=== PATIENT | male | born 1955 | race Caucasian/White ===

== ENCOUNTER 2023-04-18 03:09 | Inpatient (IN) | payer BC ==
[2023-04-18] VITALS (55 sets, daily range): BP systolic 86–118; BP diastolic 26–100; PULSE 77–159; RESP 0–38; TEMP 98.2–98.6
[~2023-04-18] VITALS: Ht 182.9 cm; Wt 91.6 kg
[2023-04-18] MEDS ORDERED: SODIUM CHLORIDE 0.9% 500 ML IV ONE (03:30)
[2023-04-18 03:41] LABS: BASOPHILS % 0.3 % (0.0-2.0); EOSINOPHILS % 0.1 % (0.0-5.0); HEMATOCRIT. 46.5 % (42.0-52.0); HEMOGLOBIN. 15.5 g/dL (14.0-18.0); LYMPHOCYTES % 30.7 % (20.0-50.0); MEAN CORPUSCULAR HEMOGLOBIN 31.1 pg (28.0-32.0); MEAN CORPUSCULAR HGB CONC 33.2 g/dL (31.0-37.0); MEAN CORPUSCULAR VOLUME 93.7 fL (80.0-94.0); MEAN PLATELET VOLUME 9.4 fl (7.4-10.4); MONOCYTES % 5.1 % (2.0-8.0); NEUTROPHILS % 63.8 % (40.0-76.0); PLATELET 188 x1000/uL (130-400); RED BLOOD CELL COUNT 4.97 mill/uL (4.7-6.1); RED CELL DISTRIBUTION WIDTH 14.3 % (11.6-14.6); WHITE BLOOD COUNT 21.7 x1000/uL (4.5-11.0)
[2023-04-18] MEDS ORDERED: MIDAZOLAM HCL 100 MG in SODIUM CHLORIDE 0.9% 100 ML IV NR (03:45)
[2023-04-18] MEDS ORDERED: ETOMIDATE 2MG/ML 10ML VIAL IV ONE (03:45)
[2023-04-18] MEDS ORDERED: SUCCINYLCHOLINE CHLORIDE 200MG/10ML IV ONE (03:45)
[2023-04-18] MEDS ORDERED: MIDAZOLAM HCL 100 MG in DEXT 5% WATER 80 ML IV ONE (03:45)
[2023-04-18] MEDS ORDERED: ROCURONIUM BROMIDE 10MG/ML VIAL 5ML IV ONE (03:45)
[2023-04-18] MEDS ORDERED: PROPOFOL 10MG/ML 100ML 100 ML IV ONE (03:45)
[2023-04-18 03:53] LABS: CALCIUM 8.6 mg/dL (8.5-10.1); CHLORIDE 106 mEq/L (98-107); INDEX HEMOLYSI 4 (1-3); INDEX ICTERIC 1 (1-4); INDEX LIPEMIC 1 (1-3); POTASSIUM 3.7 mEq/L (3.5-5.1); SODIUM 140 mEq/L (136-145)
[2023-04-18 04:00] LABS: CARBON DIOXIDE 23 mEq/L (21-32); CREATININE 1.2 mg/dL (0.6-1.3); ETHANOL BLOOD < 10 mg/dL (<10); GLUCOSE 278 mg/dL (70-105); NT PRO B-TYPE NATRIURETIC PEP 2888 pg/mL (5-125); UREA NITROGEN BLOOD 16 mg/dL (7-21)
[2023-04-18 04:10] LABS: BG BASE EXCESS -15.9 mmol/L (-2.0-2.0); BG CARBOXYHEMOGLOBIN 0.5 % (0.5-1.5); BG DEOXYHEMOGLOBIN 25.3 % (0.0-5.0); BG FRACTION INSPIRED OXYGEN 100; BG HCO3 ACT 15.4 mmol/L (22.0-26.0); BG METHEMOGLOBIN 0.4 % (0.0-1.5); BG OXYGEN SATURATION 74.5 % (92.0-98.5); BG OXYHEMOGLOBIN 73.8 % (94.0-97.0); BG PCO2 58.3 mmHg (35.0-45.0); BG PH 7.039 (7.350-7.450); BG PO2 53.8 mmHg (75.0-100.0); BG SAMPLE SITE RIGHT RADIAL; BG TOTAL HEMOGLOBIN 15.8 g/dL (12.0-18.0); BG VENT MODE VENT - AC
[2023-04-18 04:34] LABS: LACTIC ACID 8.2 mmol/L (0.4-2.0); TROPONIN I HIGH SENSITIVITY 7863 ng/L (<78)
[2023-04-18] MEDS ORDERED: METOPROLOL TARTRATE 5MG/5ML VIAL IV SCH (04:45)
[2023-04-18 04:48] LABS: D-DIMER 31.34 mg/L FEU (<0.50); PARTIAL THROMBOPLASTIN TIME 28.2 sec (23.4-31.0)
[2023-04-18 05:28] LABS: CHLORIDE 106 mEq/L (98-107); INDEX HEMOLYSI 3 (1-3); INDEX ICTERIC 1 (1-4); INDEX LIPEMIC 1 (1-3); SODIUM 140 mEq/L (136-145)
[2023-04-18 05:37] LABS: ALANINE AMINOTRANSFERASE 428 IU/L (13-61); ASPARTATE AMINOTRANSFERASE 499 IU/L (15-37); BILIRUBIN TOTAL 1.1 mg/dL (0.1-1.0); CALCIUM 8.4 mg/dL (8.5-10.1); CARBON DIOXIDE 21 mEq/L (21-32); CREATININE 1.3 mg/dL (0.6-1.3); GLUCOSE 356 mg/dL (70-105); PROTEIN TOTAL 5.8 g/dL (6.0-8.3); UREA NITROGEN BLOOD 16 mg/dL (7-21)
[2023-04-18 05:44] LABS: TROPONIN I HIGH SENSITIVITY 9328 ng/L (<78)
[2023-04-18] MEDS ORDERED: ASPIRIN 300MG SUPP PR ONE (06:15)
[2023-04-18] MEDS ORDERED: HEPARIN 5000 UNITS/ML VIAL IV ONE (06:15)
[2023-04-18 06:44] LABS: TROPONIN I HIGH SENSITIVITY 11455 ng/L (<78)
[2023-04-18] MEDS ORDERED: LIDOCAINE HCL/PF 1% 10 MG/ML 5ML VIAL ONE (06:47)
[2023-04-18] MEDS ORDERED: HEPARIN 1000 UNITS/ML 10ML ONE (06:47)
[2023-04-18] MEDS ORDERED: VERAPAMIL HCL 2.5 MG/1 ML 2ML VIAL IV ONE (06:49)
[2023-04-18] MEDS ORDERED: FUROSEMIDE 20MG/2ML VIAL ONE ×2 (07:04→07:41)
[2023-04-18] MEDS ORDERED: TICAGRELOR 90 MG TABLET PO ONE (07:05)
[2023-04-18] MEDS ORDERED: IODIXANOL 320MG/ML 100 ML BOTTLE IV ONE ×2 (07:25→09:07)
[2023-04-18] MEDS ORDERED: SODIUM BICARBONATE 8.4% 1 MEQ/ML 50ML SYR IV ONE (08:52)
[2023-04-18 08:58] LABS: BG BASE EXCESS -13.3 mmol/L (-2.0-2.0); BG CARBOXYHEMOGLOBIN 0.6 % (0.5-1.5); BG DEOXYHEMOGLOBIN 14.6 % (0.0-5.0); BG FRACTION INSPIRED OXYGEN 100; BG HCO3 ACT 15.6 mmol/L (22.0-26.0); BG METHEMOGLOBIN 0.3 % (0.0-1.5); BG OXYGEN SATURATION 85.3 % (92.0-98.5); BG OXYHEMOGLOBIN 84.5 % (94.0-97.0); BG PCO2 46.6 mmHg (35.0-45.0); BG PH 7.142 (7.350-7.450); BG PO2 62.2 mmHg (75.0-100.0); BG SAMPLE SITE ALINE; BG TOTAL HEMOGLOBIN 15.7 g/dL (12.0-18.0); BG TOTAL RESPIRATORY RATE 20 b/min; BG VENT MODE VENT - AC
[2023-04-18] MEDS ORDERED: IODIXANOL 320 MG/ML 150ML BOTTLE IV ONE (09:06)
[2023-04-18] MEDS ORDERED: NOREPINEPHRINE 8MG/250ML PMX 250 ML IV ONE (09:11)
[2023-04-18] MEDS ORDERED: SODIUM BICARBONATE 8.4% 1 MEQ/ML 50ML SYR IV NR ×2 (09:15→15:45)
[2023-04-18] MEDS ORDERED: FUROSEMIDE 100MG/10ML VIAL ONE (09:45)
[2023-04-18] MEDS: TICAGRELOR 90 MG TABLET PO SCH ×2 (10:30→22:09)
[2023-04-18] MEDS ORDERED: HEPARIN 25,000 UNITS PREMIX 250 ML IV SCH (10:30)
[2023-04-18] MEDS ORDERED: ATROPINE SULFATE 1MG/10ML SYR IV PRN (10:30)
[2023-04-18] MEDS ORDERED: ACETAMINOPHEN 325MG TABLET PO PRN (10:30)
[2023-04-18] MEDS ORDERED: WATER IV SCH (11:00)
[2023-04-18] MEDS ORDERED: SODIUM BICARBONATE IV SCH (11:00)
[2023-04-18] MEDS ORDERED: DEXTROSE 5% IV SCH (11:00)
[2023-04-18] MEDS ORDERED: AMIODARONE 150MG/100ML PREMIX 100 ML IV NR (11:45)
[2023-04-18 12:21] LABS: BG BASE EXCESS -11.1 mmol/L (-2.0-2.0); BG CARBOXYHEMOGLOBIN 0.3 % (0.5-1.5); BG DEOXYHEMOGLOBIN 13.1 % (0.0-5.0); BG FRACTION INSPIRED OXYGEN 100; BG HCO3 ACT 15.8 mmol/L (22.0-26.0); BG METHEMOGLOBIN 0.3 % (0.0-1.5); BG OXYGEN SATURATION 86.8 % (92.0-98.5); BG OXYHEMOGLOBIN 86.3 % (94.0-97.0); BG PCO2 38.8 mmHg (35.0-45.0); BG PH 7.228 (7.350-7.450); BG PO2 59.1 mmHg (75.0-100.0); BG SAMPLE SITE ALINE; BG TOTAL HEMOGLOBIN 15.2 g/dL (12.0-18.0); BG TOTAL RESPIRATORY RATE 32 b/min; BG VENT MODE VENT - AC
[2023-04-18] MEDS: SODIUM BICARBONATE 100 MEQ in DEXTROSE 5% WATER 1,000 ML IV SCH ×2 (13:06→22:03)
[2023-04-18 13:07] LABS: BASOPHILS % 0.1 % (0.0-2.0); EOSINOPHILS % 0.1 % (0.0-5.0); HEMATOCRIT. 41.4 % (42.0-52.0); HEMOGLOBIN. 13.8 g/dL (14.0-18.0); MEAN CORPUSCULAR HEMOGLOBIN 31.1 pg (28.0-32.0); MEAN CORPUSCULAR HGB CONC 33.4 g/dL (31.0-37.0); MEAN CORPUSCULAR VOLUME 93.2 fL (80.0-94.0); MEAN PLATELET VOLUME 9.5 fl (7.4-10.4); MONOCYTES % 4.7 % (2.0-8.0); NEUTROPHILS % 87.1 % (40.0-76.0); PLATELET 185 x1000/uL (130-400); RED BLOOD CELL COUNT 4.44 mill/uL (4.7-6.1); RED CELL DISTRIBUTION WIDTH 14.2 % (11.6-14.6); WHITE BLOOD COUNT 16.5 x1000/uL (4.5-11.0)
[2023-04-18] MEDS: NOREPINEPHRINE 32 MG in DEXT 5% WATER 218 ML IV PRN ×2 (13:15→19:23)
[2023-04-18 13:21] LABS: CHLORIDE 107 mEq/L (98-107); INDEX HEMOLYSI 6 (1-3); INDEX ICTERIC 1 (1-4); INDEX LIPEMIC 1 (1-3); SODIUM 138 mEq/L (136-145)
[2023-04-18 13:25] LABS: POTASSIUM 4.7 mEq/L (3.5-5.1)
[2023-04-18] MEDS ORDERED: DOPAMINE 400MG/250ML PREMIX 250 ML IV PRN (13:30)
[2023-04-18] MEDS ORDERED: DORZ10DR9 EACHEYE (13:33)
[2023-04-18] MEDS ORDERED: BRIM5DRO6 EACHEYE (13:33)
[2023-04-18 13:40] LABS: ALANINE AMINOTRANSFERASE 408 IU/L (13-61); ALBUMIN 2.4 g/dL (3.4-5.0); ASPARTATE AMINOTRANSFERASE 1491 IU/L (15-37); BILIRUBIN TOTAL 1.5 mg/dL (0.1-1.0); CALCIUM 6.9 mg/dL (8.5-10.1); CARBON DIOXIDE 18 mEq/L (21-32); CREATININE 1.9 mg/dL (0.6-1.3); GLUCOSE 267 mg/dL (70-105); UREA NITROGEN BLOOD 22 mg/dL (7-21)
[2023-04-18] MEDS: ASPIRIN 81MG TABLET PO SCH (13:50)
[2023-04-18] MEDS: FUROSEMIDE 100MG/10ML VIAL IVP SCH ×2 (13:50→18:23)
[2023-04-18] MEDS ORDERED: MIDAZOLAM 100MG/100ML PMX 100 ML IV PRN (14:45)
[2023-04-18] MEDS ORDERED: VASOPRESSIN 20 UNIT in SODIUM CHLORIDE 0.9% 99 ML IV PRN (14:45)
[2023-04-18] MEDS ORDERED: FENTANYL 2500MCG/250ML PMX 250 ML IV PRN (14:45)
[2023-04-18] MEDS: MIDAZOLAM HCL 100 MG in SODIUM CHLORIDE 0.9% 100 ML IV PRN (15:18)
[2023-04-18] MEDS: FENTANYL CITRATE 2,500 MCG in SODIUM CHLORIDE 0.9% 200 ML IV PRN (15:18)
[2023-04-18] MEDS ORDERED: IPRATROPIUM/ALBUTEROL 0.5-3(2.5)MG/3ML NEB HHN PRN (15:45)
[2023-04-18 17:15] LABS: BG BASE EXCESS -9.7 mmol/L (-2.0-2.0); BG CARBOXYHEMOGLOBIN 0.1 % (0.5-1.5); BG HCO3 ACT 16.1 mmol/L (22.0-26.0); BG METHEMOGLOBIN 0.4 % (0.0-1.5); BG OXYHEMOGLOBIN 96.5 % (94.0-97.0); BG PCO2 35.2 mmHg (35.0-45.0); BG PH 7.277 (7.350-7.450); BG PO2 98.8 mmHg (75.0-100.0); BG SAMPLE SITE ALINE; BG TOTAL HEMOGLOBIN 15.3 g/dL (12.0-18.0); BG VENT MODE VENT - AC
[2023-04-18] MEDS: IPRATROPIUM/ALBUTEROL 0.5-3(2.5)MG/3ML NEB HHN SCH (20:12)
[2023-04-18 20:28] LABS: INR 1.3; PARTIAL THROMBOPLASTIN TIME 24.8 sec (23.4-31.0)
[2023-04-18] MEDS ORDERED: HEPARIN 60 UNITS/KG BOLUS IV NR (20:40)
[2023-04-18 20:41] LABS: PROTHROMBIN TIME 13.5 sec (9.6-11.0)
[2023-04-18] MEDS: HEPARIN 25,000 UNITS PREMIX 250 ML IV SCH (21:23)
[2023-04-18] MEDS: DORZOLAM/TIMOLOL 2.23/0.68% OPHTH DROPS 10ML RIGHTEYE SCH (22:09)
[2023-04-18] MEDS: BRIMONIDINE 0.2% OPHTH DROPS 5ML RIGHTEYE SCH (22:09)
[2023-04-19] VITALS (110 sets, daily range): BP systolic 51–132; BP diastolic 11–114; PULSE 88–162; RESP 11–48; TEMP 97.8–98.7
[2023-04-19] MEDS: IPRATROPIUM/ALBUTEROL 0.5-3(2.5)MG/3ML NEB HHN SCH ×2 (02:08→08:12)
[2023-04-19] MEDS ORDERED: HEPARIN BOLUS PRN aPTT <30 IV (03:00)
[2023-04-19] MEDS ORDERED: HEPARIN BOLUS PRN aPTT 30-44 IV (03:00)
[2023-04-19 03:45] LABS: BASOPHILS % 0.3 % (0.0-2.0); DIFFERENTIAL COMMENT 0; EOSINOPHILS % 0.1 % (0.0-5.0); HEMATOCRIT. 42.7 % (42.0-52.0); HEMOGLOBIN. 14.4 g/dL (14.0-18.0); LYMPHOCYTES % 11.5 % (20.0-50.0); MEAN CORPUSCULAR HEMOGLOBIN 31.4 pg (28.0-32.0); MEAN CORPUSCULAR HGB CONC 33.6 g/dL (31.0-37.0); MEAN CORPUSCULAR VOLUME 93.5 fL (80.0-94.0); MEAN PLATELET VOLUME 9.9 fl (7.4-10.4); MONOCYTES % 5.8 % (2.0-8.0); NEUTROPHILS % 82.3 % (40.0-76.0); PLATELET 154 x1000/uL (130-400); RED BLOOD CELL COUNT 4.57 mill/uL (4.7-6.1); RED CELL DISTRIBUTION WIDTH 14.3 % (11.6-14.6); WHITE BLOOD COUNT 18.1 x1000/uL (4.5-11.0)
[2023-04-19 04:01] LABS: CALCIUM 7.1 mg/dL (8.5-10.1); CREATININE 3.5 mg/dL (0.6-1.3)
[2023-04-19 04:06] LABS: POTASSIUM 4.5 mEq/L (3.5-5.1)
[2023-04-19] MEDS: NOREPINEPHRINE 32 MG in DEXT 5% WATER 218 ML IV PRN ×2 (05:51→11:19)
[2023-04-19] MEDS: MIDAZOLAM HCL 100 MG in SODIUM CHLORIDE 0.9% 100 ML IV PRN (05:54)
[2023-04-19] MEDS: PHENYLEPHRINE 100 MG in DEXT 5% WATER 240 ML IV PRN ×3 (06:16→17:47)
[2023-04-19] MEDS: FUROSEMIDE 100MG/10ML VIAL IVP SCH (06:24)
[2023-04-19] MEDS: SODIUM BICARBONATE 100 MEQ in DEXTROSE 5% WATER 1,000 ML IV SCH ×2 (07:58→17:58)
[2023-04-19] MEDS: BRIMONIDINE 0.2% OPHTH DROPS 5ML RIGHTEYE SCH ×2 (09:05→21:44)
[2023-04-19] MEDS: PANTOPRAZOLE SODIUM 40 MG/VIAL IV SCH (09:05)
[2023-04-19] MEDS: DORZOLAM/TIMOLOL 2.23/0.68% OPHTH DROPS 10ML RIGHTEYE SCH ×2 (09:05→21:44)
[2023-04-19] MEDS: TICAGRELOR 90 MG TABLET PO SCH ×2 (09:06→21:44)
[2023-04-19] MEDS: ASPIRIN 81MG TABLET PO SCH (09:06)
[2023-04-19] MEDS ORDERED: SODIUM CHLORIDE 0.9% 250 ML IV ONE ×2 (10:00→16:15)
[2023-04-19] MEDS ORDERED: ALBUMIN HUMAN 12.5G/250ML (5%) IV NR ×3 (10:30→22:00)
[2023-04-19 10:40] LABS: INDEX HEMOLYSI 4 (1-3)
[2023-04-19 10:59] LABS: BG CARBOXYHEMOGLOBIN 1.1 % (0.5-1.5); BG DEOXYHEMOGLOBIN 0.8 % (0.0-5.0); BG FRACTION INSPIRED OXYGEN 100; BG HCO3 ACT 23.3 mmol/L (22.0-26.0); BG METHEMOGLOBIN 0.6 % (0.0-1.5); BG OXYGEN SATURATION 99.2 % (92.0-98.5); BG OXYHEMOGLOBIN 97.5 % (94.0-97.0); BG PCO2 51.1 mmHg (35.0-45.0); BG PH 7.276 (7.350-7.450); BG PO2 170.4 mmHg (75.0-100.0); BG SAMPLE SITE ALINE; BG TOTAL HEMOGLOBIN 14.3 g/dL (12.0-18.0); BG VENT MODE VENT - AC
[2023-04-19 11:13] LABS: CREATINE KINASE 8296 IU/L (39-308)
[2023-04-19 11:27] LABS: LACTIC ACID 5.5 mmol/L (0.4-2.0)
[2023-04-19] MEDS: PIPERACILLIN/TAZOBACTAM 3.375 G in DEXTROSE 5% WATER 50 ML IV SCH ×2 (12:07→21:44)
[2023-04-19] MEDS ORDERED: ALBUMIN HUMAN 12.5G/250ML (5%) IV SCH (12:15)
[2023-04-19] MEDS: IPRATROPIUM BROMIDE (0.02%) 0.5MG/2.5ML NEB HHN SCH ×2 (14:45→21:40)
[2023-04-19 15:27] LABS: CALCIUM 6.5 mg/dL (8.5-10.1); CREATININE 4.6 mg/dL (0.6-1.3)
[2023-04-19 15:33] LABS: POTASSIUM 5.5 mEq/L (3.5-5.1)
[2023-04-19] MEDS ORDERED: SODIUM BICARBONATE 8.4% 1 MEQ/ML 50ML SYR IV NR (17:30)
[2023-04-19] MEDS ORDERED: DEXTROSE 50% WATER 50ML SYRINGE IV NR (17:30)
[2023-04-19] MEDS ORDERED: CALCIUM GLUCONATE 100MG/ML 10ML VIAL IV NR (17:30)
[2023-04-19] MEDS ORDERED: INSULIN REGULAR (HUMULIN R) 300UNITS/3ML VIAL IV NR (17:30)
[2023-04-20] VITALS (105 sets, daily range): BP systolic 70–162; BP diastolic 35–104; PULSE 53–172; RESP 0–34; TEMP 97.8–98.7
[2023-04-20] MEDS ORDERED: AMIODARONE 150MG/100ML PREMIX 100 ML IV NR
[2023-04-20] MEDS ORDERED: AMIODARONE HCL 900 MG in DEXT 5% WATER 482 ML IV ONE ×3 (00:15)
[2023-04-20 00:24] LABS: POTASSIUM 3.6 mEq/L (3.5-5.1)
[2023-04-20 00:33] LABS: CHLORIDE 99 mEq/L (98-107); INDEX HEMOLYSI 4 (1-3); INDEX ICTERIC 2 (1-4); INDEX LIPEMIC 1 (1-3); SODIUM 139 mEq/L (136-145)
[2023-04-20 00:55] LABS: ALANINE AMINOTRANSFERASE 1968 IU/L (13-61); ALBUMIN 2.6 g/dL (3.4-5.0); BILIRUBIN TOTAL 2.2 mg/dL (0.1-1.0); CALCIUM 6.5 mg/dL (8.5-10.1); CARBON DIOXIDE 24 mEq/L (21-32); GLUCOSE 109 mg/dL (70-105); PROTEIN TOTAL 4.5 g/dL (6.0-8.3); UREA NITROGEN BLOOD 55 mg/dL (7-21)
[2023-04-20 01:06] LABS: ASPARTATE AMINOTRANSFERASE 4360 IU/L (15-37); CREATININE 5.4 mg/dL (0.6-1.3); POTASSIUM 3.6 mEq/L (3.5-5.1)
[2023-04-20] MEDS: VASOPRESSIN 20 UNIT in SODIUM CHLORIDE 0.9% 99 ML IV PRN ×2 (01:54→08:21)
[2023-04-20] MEDS: PHENYLEPHRINE 100 MG in DEXT 5% WATER 240 ML IV PRN ×2 (01:56→08:18)
[2023-04-20] MEDS: IPRATROPIUM BROMIDE (0.02%) 0.5MG/2.5ML NEB HHN SCH ×4 (02:40→20:02)
[2023-04-20] MEDS: SODIUM BICARBONATE 100 MEQ in DEXTROSE 5% WATER 1,000 ML IV SCH ×2 (05:13→17:09)
[2023-04-20 08:25] LABS: CALCIUM 6.6 mg/dL (8.5-10.1)
[2023-04-20 08:26] LABS: INR 1.6; PROTHROMBIN TIME 16.7 sec (9.6-11.0)
[2023-04-20 08:28] LABS: BG BASE EXCESS -0.8 mmol/L (-2.0-2.0); BG CARBOXYHEMOGLOBIN 0.2 % (0.5-1.5); BG DEOXYHEMOGLOBIN 1.3 % (0.0-5.0); BG FRACTION INSPIRED OXYGEN 70; BG METHEMOGLOBIN 0.7 % (0.0-1.5); BG OXYGEN SATURATION 98.7 % (92.0-98.5); BG OXYHEMOGLOBIN 97.8 % (94.0-97.0); BG PCO2 46.5 mmHg (35.0-45.0); BG PH 7.348 (7.350-7.450); BG PO2 147.9 mmHg (75.0-100.0); BG SAMPLE SITE ALINE; BG TOTAL HEMOGLOBIN 10.2 g/dL (12.0-18.0); BG VENT MODE VENT - AC
[2023-04-20 08:35] LABS: CREATININE 5.9 mg/dL (0.6-1.3); POTASSIUM 4.6 mEq/L (3.5-5.1)
[2023-04-20] MEDS: PIPERACILLIN/TAZOBACTAM 3.375 G in DEXTROSE 5% WATER 50 ML IV SCH ×2 (08:52→22:05)
[2023-04-20] MEDS: BRIMONIDINE 0.2% OPHTH DROPS 5ML RIGHTEYE SCH ×2 (09:02→22:09)
[2023-04-20] MEDS: ASPIRIN 81MG TABLET PO SCH (09:02)
[2023-04-20] MEDS: DORZOLAM/TIMOLOL 2.23/0.68% OPHTH DROPS 10ML RIGHTEYE SCH ×2 (09:02→22:09)
[2023-04-20] MEDS: TICAGRELOR 90 MG TABLET PO SCH (09:03)
[2023-04-20] MEDS: PANTOPRAZOLE SODIUM 40 MG/VIAL IV SCH (09:03)
[2023-04-20 09:10] LABS: BASOPHILS % 0.2 % (0.0-2.0); EOSINOPHILS % 0.7 % (0.0-5.0); LYMPHOCYTES % 9.3 % (20.0-50.0); MEAN CORPUSCULAR HEMOGLOBIN 31.3 pg (28.0-32.0); MEAN CORPUSCULAR HGB CONC 33.5 g/dL (31.0-37.0); MEAN CORPUSCULAR VOLUME 93.5 fL (80.0-94.0); MEAN PLATELET VOLUME 10.8 fl (7.4-10.4); MONOCYTES % 4.7 % (2.0-8.0); NEUTROPHILS % 85.1 % (40.0-76.0); PLATELET 66 x1000/uL (130-400); RED BLOOD CELL COUNT 3.19 mill/uL (4.7-6.1); RED CELL DISTRIBUTION WIDTH 14.2 % (11.6-14.6); WHITE BLOOD COUNT 8.6 x1000/uL (4.5-11.0)
[2023-04-20] MEDS ORDERED: LIDOCAINE HCL 1% 10 MG/ML 10ML VIAL ONE (09:11)
[2023-04-20 09:14] LABS: HEMATOCRIT. 29.8 % (42.0-52.0)
[2023-04-20] MEDS ORDERED: SODIUM CHLORIDE 0.9% 250 ML IV ONE (10:00)
[2023-04-20] MEDS ORDERED: SODIUM CHLORIDE 0.45% 250 ML IV ONE (10:30)
[2023-04-20] MEDS ORDERED: ALBUMIN HUMAN 12.5G/250ML (5%) IV ONE (10:30)
[2023-04-20] MEDS: FENTANYL CITRATE 2,500 MCG in SODIUM CHLORIDE 0.9% 200 ML IV PRN (11:00)
[2023-04-20 13:33] LABS: BG BASE EXCESS -2.1 mmol/L (-2.0-2.0); BG DEOXYHEMOGLOBIN 21.9 % (0.0-5.0); BG HCO3 ACT 23.9 mmol/L (22.0-26.0); BG METHEMOGLOBIN 0.6 % (0.0-1.5); BG OXYHEMOGLOBIN 77.5 % (94.0-97.0); BG PH 7.333 (7.350-7.450); BG PO2 46.7 mmHg (75.0-100.0); BG SAMPLE SITE VBG - N/A; BG TOTAL HEMOGLOBIN 10.5 g/dL (12.0-18.0); BG VENT MODE VENT - AC
[2023-04-20 13:46] LABS: BG BASE EXCESS -0.1 mmol/L (-2.0-2.0); BG CARBOXYHEMOGLOBIN 0.3 % (0.5-1.5); BG DEOXYHEMOGLOBIN 1.1 % (0.0-5.0); BG HCO3 ACT 25.3 mmol/L (22.0-26.0); BG METHEMOGLOBIN 0.7 % (0.0-1.5); BG OXYGEN SATURATION 98.9 % (92.0-98.5); BG OXYHEMOGLOBIN 97.9 % (94.0-97.0); BG PCO2 44.5 mmHg (35.0-45.0); BG PH 7.372 (7.350-7.450); BG PO2 184.9 mmHg (75.0-100.0); BG SAMPLE SITE ALINE; BG TOTAL HEMOGLOBIN 9.8 g/dL (12.0-18.0); BG VENT MODE VENT - AC
[2023-04-20] MEDS: DOXYCYCLINE 100 MG in DEXT 5% WATER 100 ML IV SCH (16:03)
[2023-04-20 17:11] LABS: HEPATITIS B SURFACE ANTIGEN NEGATIVE
[2023-04-20] MEDS: NOREPINEPHRINE 32 MG in DEXT 5% WATER 218 ML IV PRN (17:11)
[2023-04-20 17:38] LABS: HEPATITIS C VIR.AB 0.05 INDEXVAL (0.00-0.80)
[2023-04-20 17:39] LABS: HEPATITIS B CORE AB IGM NEGATIVE
[2023-04-20 17:41] LABS: HEPATITIS A AB IGM NEGATIVE (NEGATIVE)
[2023-04-20 17:43] LABS: LACTIC ACID 4.6 mmol/L (0.4-2.0)
[2023-04-20 19:24] LABS: BG BASE EXCESS -0.5 mmol/L (-2.0-2.0); BG CARBOXYHEMOGLOBIN 0.3 % (0.5-1.5); BG DEOXYHEMOGLOBIN 1.1 % (0.0-5.0); BG FRACTION INSPIRED OXYGEN 100; BG HCO3 ACT 23.4 mmol/L (22.0-26.0); BG METHEMOGLOBIN 0.5 % (0.0-1.5); BG OXYGEN SATURATION 98.9 % (92.0-98.5); BG OXYHEMOGLOBIN 98.1 % (94.0-97.0); BG PCO2 35.7 mmHg (35.0-45.0); BG PH 7.435 (7.350-7.450); BG PO2 187.8 mmHg (75.0-100.0); BG SAMPLE SITE ALINE; BG TOTAL HEMOGLOBIN 9.9 g/dL (12.0-18.0); BG VENT MODE VENT - AC
[2023-04-21] VITALS (93 sets, daily range): BP systolic 78–130; BP diastolic 58–101; PULSE 89–118; RESP 19–35; TEMP 98.1–98.9; O2SAT 98
[2023-04-21] MEDS: HEPARIN 25,000 UNITS PREMIX 250 ML IV SCH (01:55)
[2023-04-21] MEDS: VASOPRESSIN 20 UNIT in SODIUM CHLORIDE 0.9% 99 ML IV PRN ×3 (01:56→20:46)
[2023-04-21] MEDS: DOXYCYCLINE 100 MG in DEXT 5% WATER 100 ML IV SCH ×2 (01:58→14:13)
[2023-04-21] MEDS: IPRATROPIUM BROMIDE (0.02%) 0.5MG/2.5ML NEB HHN SCH ×4 (02:01→20:24)
[2023-04-21 02:56] LABS: BASOPHILS % 0.2 % (0.0-2.0); EOSINOPHILS % 0.4 % (0.0-5.0); HEMATOCRIT. 25.4 % (42.0-52.0); HEMOGLOBIN. 8.7 g/dL (14.0-18.0); LYMPHOCYTES % 10.2 % (20.0-50.0); MEAN CORPUSCULAR HEMOGLOBIN 31.5 pg (28.0-32.0); MEAN CORPUSCULAR HGB CONC 34.3 g/dL (31.0-37.0); MEAN CORPUSCULAR VOLUME 91.8 fL (80.0-94.0); MEAN PLATELET VOLUME 11.1 fl (7.4-10.4); MONOCYTES % 4.6 % (2.0-8.0); NEUTROPHILS % 84.6 % (40.0-76.0); RED BLOOD CELL COUNT 2.77 mill/uL (4.7-6.1); RED CELL DISTRIBUTION WIDTH 14.6 % (11.6-14.6); WHITE BLOOD COUNT 8.7 x1000/uL (4.5-11.0)
[2023-04-21 03:03] LABS: DIFFERENTIAL COMMENT 1
[2023-04-21 03:38] LABS: PLATELET 47 x1000/uL (130-400)
[2023-04-21] MEDS: SODIUM BICARBONATE 100 MEQ in DEXTROSE 5% WATER 1,000 ML IV SCH (04:33)
[2023-04-21 06:26] LABS: POTASSIUM 3.7 mEq/L (3.5-5.1)
[2023-04-21 06:28] LABS: BASOPHILS % 0.1 % (0.0-2.0); EOSINOPHILS % 0.8 % (0.0-5.0); HEMATOCRIT. 24.3 % (42.0-52.0); HEMOGLOBIN. 8.5 g/dL (14.0-18.0); LYMPHOCYTES % 9.7 % (20.0-50.0); MEAN CORPUSCULAR VOLUME 91.4 fL (80.0-94.0); MEAN PLATELET VOLUME 11.7 fl (7.4-10.4); MONOCYTES % 4.3 % (2.0-8.0); NEUTROPHILS % 85.1 % (40.0-76.0); RED BLOOD CELL COUNT 2.66 mill/uL (4.7-6.1); RED CELL DISTRIBUTION WIDTH 14.3 % (11.6-14.6); WHITE BLOOD COUNT 8.7 x1000/uL (4.5-11.0)
[2023-04-21 06:32] LABS: CALCIUM 6.5 mg/dL (8.5-10.1)
[2023-04-21 06:37] LABS: CREATININE 5.7 mg/dL (0.6-1.3)
[2023-04-21] MEDS: NOREPINEPHRINE 32 MG in DEXT 5% WATER 218 ML IV PRN (06:45)
[2023-04-21 07:00] LABS: DIFFERENTIAL COMMENT 1
[2023-04-21 07:02] LABS: PLATELET 46 x1000/uL (130-400)
[2023-04-21] MEDS: TICAGRELOR 90 MG TABLET PO SCH ×2 (09:00→09:38)
[2023-04-21] MEDS ORDERED: LORAZEPAM 2MG/ML CPJ IV PRN (09:15)
[2023-04-21 09:18] LABS: BG BASE EXCESS 5.2 mmol/L (-2.0-2.0); BG CARBOXYHEMOGLOBIN 0.3 % (0.5-1.5); BG DEOXYHEMOGLOBIN 0.9 % (0.0-5.0); BG FRACTION INSPIRED OXYGEN 100; BG HCO3 ACT 29.1 mmol/L (22.0-26.0); BG METHEMOGLOBIN 0.7 % (0.0-1.5); BG OXYGEN SATURATION 99.1 % (92.0-98.5); BG OXYHEMOGLOBIN 98.1 % (94.0-97.0); BG PCO2 40.2 mmHg (35.0-45.0); BG PH 7.478 (7.350-7.450); BG PO2 220.8 mmHg (75.0-100.0); BG SAMPLE SITE ALINE; BG TOTAL HEMOGLOBIN 8.8 g/dL (12.0-18.0); BG VENT MODE VENT - AC
[2023-04-21] MEDS: PIPERACILLIN/TAZOBACTAM 3.375 G in DEXTROSE 5% WATER 50 ML IV SCH ×2 (09:37→21:24)
[2023-04-21] MEDS: DORZOLAM/TIMOLOL 2.23/0.68% OPHTH DROPS 10ML RIGHTEYE SCH ×2 (09:38→21:23)
[2023-04-21] MEDS: PANTOPRAZOLE SODIUM 40 MG/VIAL IV SCH (09:38)
[2023-04-21] MEDS: BRIMONIDINE 0.2% OPHTH DROPS 5ML RIGHTEYE SCH ×2 (09:38→22:03)
[2023-04-21] MEDS ORDERED: DEXT 5%/0.45% NACL 1000ML 1,000 ML IV SCH (10:00)
[2023-04-21 10:53] LABS: BASOPHILS % 0.4 % (0.0-2.0); EOSINOPHILS % 0.7 % (0.0-5.0); HEMATOCRIT. 22.9 % (42.0-52.0); HEMOGLOBIN. 7.8 g/dL (14.0-18.0); MEAN CORPUSCULAR VOLUME 91.1 fL (80.0-94.0); MEAN PLATELET VOLUME 10.9 fl (7.4-10.4); MONOCYTES % 4.3 % (2.0-8.0); NEUTROPHILS % 82.6 % (40.0-76.0); RED BLOOD CELL COUNT 2.51 mill/uL (4.7-6.1); RED CELL DISTRIBUTION WIDTH 14.4 % (11.6-14.6); WHITE BLOOD COUNT 6.9 x1000/uL (4.5-11.0)
[2023-04-21 11:04] LABS: DIFFERENTIAL COMMENT 1; PLATELET 39 x1000/uL (130-400)
[2023-04-21] MEDS ORDERED: ALBUMIN HUMAN 12.5G/250ML (5%) IV NR (11:30)
[2023-04-21 13:16] LABS: BASOPHILS % 0.3 % (0.0-2.0); EOSINOPHILS % 0.6 % (0.0-5.0); HEMOGLOBIN. 7.8 g/dL (14.0-18.0); LYMPHOCYTES % 12.5 % (20.0-50.0); MEAN CORPUSCULAR HGB CONC 33.9 g/dL (31.0-37.0); MEAN CORPUSCULAR VOLUME 91.4 fL (80.0-94.0); MEAN PLATELET VOLUME 11.5 fl (7.4-10.4); MONOCYTES % 5.5 % (2.0-8.0); NEUTROPHILS % 81.1 % (40.0-76.0); RED BLOOD CELL COUNT 2.52 mill/uL (4.7-6.1); RED CELL DISTRIBUTION WIDTH 14.2 % (11.6-14.6); WHITE BLOOD COUNT 7.6 x1000/uL (4.5-11.0)
[2023-04-21 13:34] LABS: DIFFERENTIAL COMMENT 1; PLATELET 42 x1000/uL (130-400)
[2023-04-21 13:39] LABS: BG BASE EXCESS 4.8 mmol/L (-2.0-2.0); BG CARBOXYHEMOGLOBIN 0.1 % (0.5-1.5); BG DEOXYHEMOGLOBIN 1.6 % (0.0-5.0); BG FRACTION INSPIRED OXYGEN 100; BG HCO3 ACT 28.6 mmol/L (22.0-26.0); BG METHEMOGLOBIN 0.6 % (0.0-1.5); BG OXYGEN SATURATION 98.4 % (92.0-98.5); BG OXYHEMOGLOBIN 97.7 % (94.0-97.0); BG PCO2 38.8 mmHg (35.0-45.0); BG PH 7.485 (7.350-7.450); BG PO2 124.2 mmHg (75.0-100.0); BG SAMPLE SITE ALINE; BG TOTAL HEMOGLOBIN 8.8 g/dL (12.0-18.0); BG VENT MODE VENT - AC
[2023-04-21 13:55] LABS: LACTIC ACID 3.8 mmol/L (0.4-2.0)
[2023-04-22] MEDS ORDERED: CLOPIDOGREL 75MG TABLET PO SCH (09:00)
[2023-04-23] MEDS ORDERED: CLOPIDOGREL 75MG TABLET PO SCH (09:00)
== END 2023-04-21 20:12 | disposition short-term general hospital (02) | DRG 853 ==
LOC: ER 03:09 → CVICU 06:10 → EDBEDREQTM 06:36 → EDBEDREQ 06:36
PROVIDERS: ADMIT Internal Medicine; ATTEND Internal Medicine
PROC: 027034Z Dilation of Coronary Artery, One Artery with Drug-eluting Intraluminal Device, Percutaneous Approach (ICD-10-PCS; principal; 2023-04-18)
PROC: 02HA3RZ Insertion of Short-term External Heart Assist System into Heart, Percutaneous Approach (ICD-10-PCS; 2023-04-18)
PROC: 5A0221D Assistance with Cardiac Output using Impeller Pump, Continuous (ICD-10-PCS; 2023-04-18)
PROC: 047H3DZ Dilation of Right External Iliac Artery with Intraluminal Device, Percutaneous Approach (ICD-10-PCS; 2023-04-18)
PROC: 4A023N7 Measurement of Cardiac Sampling and Pressure, Left Heart, Percutaneous Approach (ICD-10-PCS; 2023-04-18)
PROC: B2111ZZ Fluoroscopy of Multiple Coronary Arteries using Low Osmolar Contrast (ICD-10-PCS; 2023-04-18)
PROC: B41D1ZZ Fluoroscopy of Aorta and Bilateral Lower Extremity Arteries using Low Osmolar Contrast (ICD-10-PCS; 2023-04-18)
PROC: B241ZZ3 Ultrasonography of Multiple Coronary Arteries, Intravascular (ICD-10-PCS; 2023-04-18)
PROC: B41C1ZZ Fluoroscopy of Pelvic Arteries using Low Osmolar Contrast (ICD-10-PCS; 2023-04-18)
PROC: 5A1945Z Respiratory Ventilation, 24-96 Consecutive Hours (ICD-10-PCS; 2023-04-18)
PROC: 0BH17EZ Insertion of Endotracheal Airway into Trachea, Via Natural or Artificial Opening (ICD-10-PCS; 2023-04-18)
PROC: 02HV33Z Insertion of Infusion Device into Superior Vena Cava, Percutaneous Approach (ICD-10-PCS; 2023-04-18)
PROC: B548ZZA Ultrasonography of Superior Vena Cava, Guidance (ICD-10-PCS; 2023-04-18)
PROC: 03HY32Z Insertion of Monitoring Device into Upper Artery, Percutaneous Approach (ICD-10-PCS; 2023-04-18)
PROC: 02HV33Z Insertion of Infusion Device into Superior Vena Cava, Percutaneous Approach (ICD-10-PCS; 2023-04-20)
PROC: B548ZZA Ultrasonography of Superior Vena Cava, Guidance (ICD-10-PCS; 2023-04-20)
PROC: 5A1D70Z Performance of Urinary Filtration, Intermittent, Less than 6 Hours Per Day (ICD-10-PCS; 2023-04-20)
PROC: 4A00X4Z Measurement of Central Nervous Electrical Activity, External Approach (ICD-10-PCS; 2023-04-21)
DX: A41.9 Sepsis, unspecified organism (principal); G93.41 Metabolic encephalopathy; I21.09 ST elevation (STEMI) myocardial infarction involving other coronary artery of anterior wall; I46.2 Cardiac arrest due to underlying cardiac condition; I49.01 Ventricular fibrillation; I50.21 Acute systolic (congestive) heart failure; I77.72 Dissection of iliac artery; J18.9 Pneumonia, unspecified organism; J96.01 Acute respiratory failure with hypoxia; J96.02 Acute respiratory failure with hypercapnia; K72.00 Acute and subacute hepatic failure without coma; N17.0 Acute kidney failure with tubular necrosis; R57.0 Cardiogenic shock; E44.0 Moderate protein-calorie malnutrition; E87.4 Mixed disorder of acid-base balance; I47.20 Ventricular tachycardia, unspecified; G93.1 Anoxic brain damage, not elsewhere classified; E87.20 Acidosis, unspecified; I11.0 Hypertensive heart disease with heart failure; D64.9 Anemia, unspecified; E11.65 Type 2 diabetes mellitus with hyperglycemia; I25.10 Atherosclerotic heart disease of native coronary artery without angina pectoris; D69.6 Thrombocytopenia, unspecified; R34 Anuria and oliguria; Z68.27 Body mass index [BMI] 27.0-27.9, adult
CPT/HCPCS: 31500; 33990; 36415; 36556; 36600; 37221; 71045; 75710; 76770; 76937; 80048; 80053; 80320; 82375; 82550; 82805; 82962; 83036; 83605; 83735; 83880; 84132; 84145; 84484; 85025; 85049; 85347; 85379; 86705; 86709; 86803; 86850; 86900; 87070; 87340; 90935; 92928; 92978; 93005; 93306; 93308; 93458; 93922; 93970; 94002; 94003; 94640; 99291; A6261; C1725; C1752; C1753; C1769; C1874; C1876; C1887; C1893; C1894; C9113; J0282; J0610; J1644; J1815; J1940; J2060; J2250; J2370; J2543; J2704; J3010; J3490; J7040; J7050; J7060; J7070; L1830; P9041; Q9967; G0480; J8499